=== PATIENT | female | born 1930 | race Caucasian/White ===

== ENCOUNTER 2019-09-07 12:49 | Emergency (ER) | payer MEDICARE ==
[2019-09-07] MEDS ORDERED: Acetaminophen 500 MG Tab PO ONE (14:38)
--- NOTE | 2019-09-07 14:40 | EDM.PDOC ---
ED HPI GENERAL MEDICAL PROBLEM - General Chief Complaint: Head Injury Stated Complaint: FALL Time Seen by Provider: 09/07/19 12:55 Source of Information: Reports: Patient History Limitations: Reports: No Limitations - History of Present Illness INITIAL COMMENTS - FREE TEXT/NARRATIVE: was walking from one room to the other when she tripped and fell backwards and hit the wooden floor . states she did not loose consciousness recalls falling was able to sit up but not able to stand up till her daughter came in from mowing the lawn and picked her up. Onset: Today Onset Date: 09/07/19 Location: Reports: Head Quality: Reports: Ache Severity: Mild Improves with: Reports: Cold Therapy Worsens with: Reports: Movement Context: Reports: Trauma Associated Symptoms: Reports: No Other Symptoms mid upper back Pain Score (Numeric/FACES): 5 - Related Data Allergies Allergy/AdvReac Type Severity Reaction Status Date / Time No Known Allergies Allergy Verified 09/07/19 13:27 Home Meds: Home Meds Aspirin/Dipyridamole [Aspirin-Dipyridam ER 25-200 mg] 1 each PO BID 09/07/19 [ History] Furosemide 20 mg PO DAILY 09/07/19 [History] amLODIPine [Norvasc] 5 mg PO DAILY 09/07/19 [History] atenoloL [Atenolol] 50 mg PO BID 09/07/19 [History] lisinopriL [Lisinopril] 20 mg PO BID 09/07/19 [History] metFORMIN [Glucophage] 500 mg PO BIDMEALS 09/07/19 [History] Past Medical History Cardiovascular History: Reports: Stents Neurological History: Reports: TIA Endocrine/Metabolic History: Reports: Diabetes, Type II Social & Family History - Tobacco Use Smoking Status *Q: Never Smoker ED ROS GENERAL - Review of Systems Review Of Systems: See Below Constitutional: Reports: Fatigue. Denies: Fever, Malaise HEENT: Reports: No Symptoms. Denies: Ear Discharge, Eye Discharge Respiratory: Denies: No Symptoms, Shortness of Breath Cardiovascular: Denies: Chest Pain GI/Abdominal: Reports: No Symptoms. Denies: Abdominal Pain Musculoskeletal: Reports: Neck Pain, Back Pain (in thoracic region) Skin: Reports: Lumps (on scalp and left shoulder ( lipoma)) Neurological: Reports: No Symptoms. Denies: Confusion, Dizziness, Headache, Trouble Speaking, Difficulty Walking Psychiatric: Reports: No Symptoms Hematologic/Lymphatic: Reports: No Symptoms Immunologic: Reports: No Symptoms ED EXAM, HEAD INJURY - Physical Exam Exam: See Below Exam Limited By: No Limitations General Appearance: Alert, WD/WN, No Apparent Distress Head: Scalp Swelling, Scalp Hematoma (in the occipital region of the scalp about [id number] , no skin tear) Nexus Criteria: No: Posterior, Midline Cervical Tenderness, Evidence of Intoxication, Altered Level of Consciousness, Focal Neurological Deficit, Painful Distraction Injuries Eyes: Bilateral Eye: EOMI, PERRL Ears: Normal External Exam Nose: Normal Inspection Throat/Mouth: Normal Oropharynx Neck: Painful Range of Motion, Stiff Neck (from arthritis) Respiratory: Lungs Clear, Normal Breath Sounds Cardiovascular: Regular Rate, Rhythm, No Edema Back Exam: No: CVA Tenderness (R), CVA Tenderness (L) Extremities: Non-Tender Neurologic: Normal Mood/Affect, Oriented x 3 Skin: Other (scalp hematoma , lipoma on the left shoulder ) - Adriana Coma Score Best Eye Response (Adriana): (4) Open Spontaneously Best Verbal Response ([place]): (5) Oriented Best Motor Response (Adriana): (6) Obeys Commands Adriana Total: 15 Course - Vital Signs Last Recorded V/S: Last Vital Signs Temp 36.6 C 09/07/19 12:49 Pulse 84 09/07/19 12:49 Resp 20 09/07/19 12:49 BP 148/63 H 09/07/19 12:49 Pulse Ox 99 09/07/19 12:49 - Orders/Labs/Meds Orders: Active Orders 24 hr Category Date Time Status EKG Documentation Completion [RC] ASDIRECTED Care 09/07/19 13:08 Active Head wo Cont [CT] Stat Exams 09/07/19 13:07 Taken Thoracic Spine 3V [CR] Stat Exams 09/07/19 13:15 Taken EKG 12 Lead [EK] Routine Ther 09/07/19 13:07 Ordered Labs: Laboratory Tests 09/07/19 09/07/19 09/07/19 Range/Units 13:15 13:15 13:31 WBC 11.6 (4.5-12.0) X10-3/uL RBC 4.49 (3.23-5.20) x10(6)uL Hgb 12.7 (11.5-15.5) g/dL Hct 38.8 (30.0-51.3) % MCV 86.4 (80-96) fL MCH 28.3 (27.7-33.6) pg MCHC 32.8 (32.2-35.4) g/dL RDW 12.2 (11.5-15.5) % Plt Count 233 (125-369) X10(3)uL MPV 7.4 (7.4-10.4) fL Neut % (Auto) 87.5 H (46-82) % Lymph % (Auto) 5.2 L (13-37) % Lipscomb % (Auto) 7.1 (4-12) % Eos % (Auto) 0 L (1.0-5.0) % Baso % (Auto) 0 (0-2) % Neut # (Auto) 10.2 H (1.6-8.3) # Lymph # (Auto) 0.6 (0.6-5.0) # Lipscomb # (Auto) 0.8 (0.0-1.3) # Eos # (Auto) 0.0 (0.0-0.8) # Baso # (Auto) 0.0 (0.0-0.2) # Sodium 141 (135-145) mmol/L Potassium 4.1 (3.5-5.3) mmol/L Chloride 105 (100-110) mmol/L Carbon Dioxide 25 (21-32) mmol/L BUN 26 H (7-18) mg/dL Creatinine 1.3 H (0.55-1.02) mg/dL Est Cr Clr Drug Dosing TNP Estimated GFR (MDRD) 39 L (>60) BUN/Creatinine Ratio 20.0 (9-20) Glucose 144 H (80-116) mg/dL Calcium 8.9 (8.6-10.2) mg/dL Magnesium 1.9 (1.8-2.5) mg/dL Urine Color Yellow (YELLOW) Urine Appearance Clear (CLEAR) Urine pH 5.0 (5.0-6.5) Ur Specific [place] 1.010 (1.010-1.025) Urine Protein Negative (NEGATIVE) mg/dL Urine Glucose (UA) Normal (NORMAL) mg/dL Urine Ketones Negative (NEGATIVE) mg/dL Urine Occult Blood Negative (NEGATIVE) Urine Nitrite Negative (NEGATIVE) Urine Bilirubin Negative (NEGATIVE) Urine Urobilinogen Normal (NEGATIVE) mg/dL Ur Leukocyte Esterase Negative (NEGATIVE) Urine RBC 0-5 (0-5) Urine WBC 0-5 (0-5) Ur Squamous Epith Cells Few H (NS,R,O) Urine Bacteria Few H (NS) - Re-Assessments/Exams Free Text/Narrative Re-Assessment/Exam: 09/07/19 14:42 pt did well , no change in status had Ct head and xray of thoracic spine done was able to ambulate briefly will need FU with PCP if symptoms get worse Departure - Departure Time of Disposition: 14:45 Disposition: Still A Patient 30 Condition: Fair Clinical Impression: Concussion with no loss of consciousness, Degenerative arthritis of thoracic spine - Discharge Information *PRESCRIPTION DRUG MONITORING PROGRAM REVIEWED*: Not Applicable *COPY OF PRESCRIPTION DRUG MONITORING REPORT IN PATIENT LEV: Not Applicable Instructions: Head Injury, Adult, [id number], Concussion, Adult, [id number] , Hematoma, [id number] Referrals: Kylie Hines PA [Primary Care Provider] - Additional Instructions: 1) Cold compress to the affected are of the scalp 20mins 3 times a day 2) Ok to take tylenol or acetaminophen for headache . If severe headache occurs you will need to be seen again 3) Make follow up appointment with your PCP for recheck Sepsis Event Note - Evaluation Sepsis Screening Result: No Definite Risk - Focused Exam Vital Signs: Vital Signs Temp Pulse Resp BP Pulse Ox 09/07/19 12:49 36.6 C 84 20 148/63 H 99 Date Exam was Performed: 09/07/19 Time Exam was Performed: 14:35 - My Orders Last 24 Hours: My Active Orders 09/07/19 13:07 Head wo Cont [CT] Stat EKG 12 Lead [EK] Routine 09/07/19 13:08 EKG Documentation Completion [RC] ASDIRECTED 09/07/19 13:15 Thoracic Spine 3V [CR] Stat - Assessment/Plan Last 24 Hours: My Active Orders 09/07/19 13:07 Head wo Cont [CT] Stat EKG 12 Lead [EK] Routine 09/07/19 13:08 EKG Documentation Completion [RC] ASDIRECTED 09/07/19 13:15 Thoracic Spine 3V [CR] Stat
== END 2019-09-07 14:50 | disposition home or self-care (01) ==
LOC: FB.ED 12:49
DX: S06.0X0A Concussion without loss of consciousness, initial encounter (principal); M47.814 Spondylosis without myelopathy or radiculopathy, thoracic region; E11.9 Type 2 diabetes mellitus without complications; Z79.82 Long term (current) use of aspirin; Z79.84 Long term (current) use of oral hypoglycemic drugs; Z86.73 Personal history of transient ischemic attack (TIA), and cerebral infarction without residual deficits; W01.198A Fall on same level from slipping, tripping and stumbling with subsequent striking against other object, initial encounter
CPT/HCPCS: 36415; 70450; 72072; 80048; 81001; 83735; 85025; 93005; 99284; A9270